=== PATIENT | male | born 1995 | race Two or more races ===

== ENCOUNTER 2020-12-07 13:16 | Emergency (ER) | payer MEDICAID ==
[~2020-12-07] VITALS: Ht 167.6 cm; Wt 81.6 kg
[2020-12-07 13:40] VITALS: BP 105/74
[2020-12-07] MEDS ORDERED: ACETAMINOPHEN 500 MG TAB PO ONE (14:45)
== END 2020-12-07 15:20 | disposition home or self-care (01) ==
LOC: ER 13:16
DX: G44.209 Tension-type headache, unspecified, not intractable (principal)
CPT/HCPCS: 70450

== ENCOUNTER 2024-05-18 00:39 | Emergency (ER) | payer MEDICAID ==
[~2024-05-18] VITALS: Ht 167.6 cm; Wt 90.3 kg
[2024-05-18 00:50] VITALS: BP 102/78; PULSE 111; RESP 18; TEMP 100.4; O2SAT 95
[2024-05-18] MEDS ORDERED: PRED20TA2 PO (01:33)
[2024-05-18] MEDS ORDERED: IBUP-1456 PO (01:33)
--- NOTE | 2024-05-18 01:33 | ED.PDOC ---
History of Present Illness HPI Comments 28-year-old male presents to ER with complaints of flu-like symptoms x1 day. Patient reports he has been experiencing dry cough, fever, body aches, runny nose, frontal headache and sore throat x1 day. States that he last took Tylenol at 11:00 p.m. with slight relief. Patient presents to ER febrile on arrival at 100.4 F, ambulatory, with steady gait, in no distress. He reports 9/10 frontal headache pain, denying any other current pain. States that he has been around his mother who has also been experiencing similar symptoms. Denies shortness of breath, hemoptysis, chest pain, dizziness, neck pain, nausea/vomiting, abdominal pain, changes in urination/BM or any further symptoms/complaints Chief Complaint: Flu like Time Seen by MD: 01:01 Primary Care Provider: UNKNOWN Reviewed Notes: Nurses Notes, Medications, Allergies Information Source: Patient Mode of Arrival: Ambulatory Past Medical History PAST MEDICAL HISTORY: Denies Surgical History: Denies all surgeries Family History Family History: Reviewed,noncontributory to illness Social History Smoker: Non-Smoker Alcohol: Denies ETOH Use Drugs: Denies Drug Use Lives In: Home Constitutional: See HPI EENTM: See HPI Respiratory: See HPI Cardiovascular: No Symptoms Reported Gastrointestinal: No Symptoms Reported Genitourinary: No Symptoms Reported Neurological: See HPI Musculoskeletal: No Symptoms Reported Integumentary: No Symptoms Reported Allergic/Immunocompromised: others (denies) Hematologic/Lymphatic: No Symptoms Reported Endocrine: No Symptoms Reported Psychiatric: No symptoms Reported Physical Exam General Appearance: No Apparent Distress, Obese HEENT: Normal ENT Inspection, PERRL/EOMI, Pharynx Normal, TMs Normal Neck: Full Range of Motion, Non-Tender, Normal Respiratory: Chest Non-Tender, Lungs Clear, No Accessory Muscle Use, No Respiratory Distress, Normal Breath Sounds Cardiovascular: No Murmur, No Gallop, Tachycardia Breast Exam: Deferred Gastrointestinal: Non Tender, No Pulsatile Mass, Soft Genitalia: Deferred Pelvic: Deferred Rectal: Deferred Extremities: Normal capillary refill, Normal range of motion Neurologic: Alert, donor services manager II-XII nml as Tested, No Motor Deficits, Normal Affect, Normal Mood, No Sensory Deficits Cerebellar Function: Normal Reflexes: Normal Skin: Dry, Normal Color, Warm Lymphatic: No Adenopathy Was a procedure done? Was a procedure done?: No Sedation Sedation?: No Fever Differential Dx Differential Diagnosis: Sepsis, Pharyngitis, Other (COVID-19) X-Ray, Labs, Meds, VS Vital Signs Date Time Temp Pulse Resp B/P (MAP) Pulse Ox O2 Delivery O2 Flow Rate FiO2 05/18/24 00:50 100.4 111 18 102/78 (86) 95 Lab Test 05/18/24 00:56 Range/Units Influenza Type A Antigen Pending Influenza Type B Antigen Pending SARS-CoV-2 Antigen (Rapid) Pending Influenza a reviewed-positive Influenza B reviewed-negative Abbey reviewed-negative Ibuprofen 400 mg p.o. ordered Patient tolerating p.o. intake well and nontoxic appearing/in no distress prior to discharge Advised to drink plenty of fluids Advised to follow up with PCP in 1-2 days Patient verbalized understanding and agreeable with current plan of care Advised to return to ER immediately if symptoms worsen Time of 1ST Reevaluation: 01:12 Reevaluation 1ST: N/A Patient Education/Counseling: Diagnosis, Treatment, Prognosis, Need For Follow Up Family Education/Counseling: No Family Present Departure 1 Departure Time of Disposition: 01:32 Impression: Primary Impression: Influenza A Disposition: 01 HOME / SELF CARE / HOMELESS Condition: Stable e-Prescriptions Oseltamivir Phosphate (Tamiflu) 75 Mg Cap 1 CAP PO BID for 5 Days, #10 CAP 0 Refills Prov: SHANIA DE OLIVEIRA 05/18/24 Prednisone (Prednisone) 20 Mg Tab 20 MG PO BID for 5 Days, #10 TAB 0 Refills Prov: SHANIA DE OLIVEIRA 05/18/24 Ibuprofen (Ibuprofen) 800 Mg Tab 1 TAB PO TID PRN, #30 TAB 0 Refills Prov: SHANIA DE OLIVEIRA 05/18/24 Discharged With: Self Critical Care Note Critical Care Time?: No Stability Stability form required: No Heart Score Heart Score: Heart Score Response (Comments) Value History N/A 0 EKG N/A 0 Age N/A 0 Risk Factors N/A 0 Troponin N/A 0 Total 0 SHANIA DE OLIVEIRA May 18, 2024 01:33
[2024-05-18] MEDS: IBUPROFEN 400 MG TAB PO ONE (01:34)
[2024-05-18 01:36] LABS: COVID19 ANTIGEN SOFIA FIA NEGATIVE (NEGATIVE); Rapid Influenza B Negative (Negative)
[2024-05-18 01:37] LABS: Rapid Influenza A Positive (Negative)
[2024-05-18] MEDS ORDERED: OSEL75CA5 PO (01:37)
== END 2024-05-18 01:52 | disposition home or self-care (01) ==
LOC: ER 00:39
DX: J10.1 Influenza due to other identified influenza virus with other respiratory manifestations (principal); Z20.822 Contact with and (suspected) exposure to COVID-19
CPT/HCPCS: 36415; 87426; 87804